=== PATIENT | male | born 1955 | race Hispanic/Latino ===

== ENCOUNTER → 2019-01-02 | Day surgery (SDC) | payer OTHER ==
[~2019-01-02] MED LIST: FENTANYL CITRATE/PF 100MCG/2 ML INJ ONE; HYOSCYAMINE 0.125 MG TAB ONE; MIDAZOLAM HCL 2 MG/2 ML VIAL ONE; PROPOFOL IV EMULSION 10 MG/ML 50 ML VIAL ONE
--- NOTE | 2019-01-02 07:05 | NUR ---
SPIRITUAL CARE - Pre-Surgery Assessment: Pt in bed. Pt's at bedside. Pt reported supportive attention from family and friends. Intervention: I provided pastoral presence, hospitality, and sympathetic listening. I acquainted pt with availability of corrosion engineer while hospitalized. Outcome: Pt expressed appreciation for visit. No need for follow up indicated at this time. [facility] Spiritual [facility] Department O: [phone] Pager: [phone] ([phone] number calling from)
[2019-01-02 09:25] VITALS: BP 118/79
--- NOTE | 2019-01-02 10:23 | Operative Report ---
DATE OF PROCEDURE: 01/02/2019 SURGEON: John Culver MD PROCEDURES: EGD with biopsies and colonoscopy with polypectomy. INDICATIONS FOR EGD: History of gastric submucosal nodule, duodenal nodule. INDICATIONS FOR COLONOSCOPY: Surveillance colonoscopy, personal history of colon polyps, loose stools. MEDICATIONS: The patient was done under MAC, please see anesthesiologist's note. PROCEDURE IN DETAIL: With the patient in left lateral decubitus position, a flexible fiberoptic Olympus gastroscope was introduced into the esophagus under direct visualization without any difficulty. There were some patchy erythema noted in the distal esophagus. The scope was then advanced with ease into the stomach. Mucosa overlying the antrum and the body revealed some patchy erythema, low-grade edema and biopsies were obtained and sent to stain for H. pylori. A submucosal nodule was noted in the distal antrum along the greater curvature within normal overlying mucosa. The pylorus was intubated with ease and the scope was advanced to the second portion of the duodenum, it was then withdrawn slowly and approximately 1 cm nodule noted in the proximal second portion proximal to the ampulla, and that was biopsied. Also, biopsies were obtained from the second portion and duodenal bulb to rule out sprue. The scope was then withdrawn back into the stomach and retroflexed, and mucosa overlying the fundus and cardia appeared to be within normal limits. The scope was then straightened out, it was subsequently withdrawn. The patient tolerated the procedure well. IMPRESSION: 1. Distal esophagitis, mild. 2. Gastritis, biopsied, biopsies sent to stain for H. pylori. 3. Submucosal nodule, antrum, approximately 1.2 cm with normal overlying mucosa. 4. Approximately 1 cm nodule, proximal second portion, proximal to ampulla biopsied. PLAN: Follow up histology. Initiate Protonix 40 mg one p.o. q.a.m. a.c. The patient will need a CT of the abdomen and possibly later an EUS. PROCEDURE IN DETAIL: The patient was then turned around after adequate lubrication of the anal canal, a flexible fiberoptic Olympus colonoscope was inserted into the rectum with ease and advanced all the way to the cecum. Mucosa overlying the cecum appeared to be within normal limits. The ileocecal valve appeared to be within normal limits. Biopsies were obtained from the terminal ileum. The scope was then withdrawn slowly. An approximately 4 mm polyp was removed per cold snare polypectomy from the ascending colon. The transverse descending and sigmoid appeared to be within normal limits. A minute polyp was removed per hot biopsy forceps from the rectum. The scope was then retroflexed into the distal rectum and small internal hemorrhoids were noted, none of which was actively bleeding. The scope was then straightened out, it was subsequently withdrawn after securing an adequate stool specimen, that was sent for the appropriate stool studies. The patient tolerated the procedure well. IMPRESSION: 1. Ascending colon polyp, 4 mm in size, removed per cold snare polypectomy. 2. Rectal polyp, minute, hot biopsied. 3. Internal hemorrhoids, none actively bleeding. PLAN: 1. Follow up histology. 2. Follow up stool studies. 3. The patient might benefit from a followup colonoscopy in 5 years. MD YANG Balbuena/DEISY /[id number]
[2019-01-02 12:56] LABS: WBC,FECAL (FECAL LACTOFERRIN) NEGATIVE (NEGATIVE)
[2019-01-02 15:28] LABS: C DIFFICILE TOXIN A&B AMP PROB NEGATIVE (NEGATIVE)
== END | disposition home or self-care (01) ==
LOC: OR 05:52
PROVIDERS: ATTEND Internal Medicine Gastroenterology
DX: K31.9 Disease of stomach and duodenum, unspecified (principal); D12.2 Benign neoplasm of ascending colon; Z86.010 Personal history of colon polyps; R19.7 Diarrhea, unspecified; K20.9 Esophagitis, unspecified; K29.70 Gastritis, unspecified, without bleeding; K63.5 Polyp of colon; K62.1 Rectal polyp; K64.8 Other hemorrhoids; Z01.810 Encounter for preprocedural cardiovascular examination
CPT/HCPCS: 43239; 45384; 45385; 83630; 83993; 87045; 87177; 87328; 87493; 93005; J2250; J2704; J3010; 45378